=== PATIENT | male | born 1990 | race Hispanic/Latino ===

== ENCOUNTER 2020-07-30 23:49 | Inpatient (IN) | payer BC, OTHER ==
[2020-07-30] MEDS ORDERED: Ketamine 50 MG/ML (10ML VIAL) ONE (23:58)
[2020-07-31] MEDS ORDERED: Boostrix 0.5 ML VIAL ONE (00:08)
[2020-07-31 00:29] LABS: Hemoglobin 15.9 g/dL (14.0-18.0); Mean Corpuscular HGB CONC 34.5 g/dL (32.0-36.0); Mean Corpuscular Hemoglobin 29.5 pg (27.0-31.0); Mean Corpuscular Volume 85.7 fL (78.0-98.0); Mean Platelet Volume 10.2 fL (7.4-10.4); Platelet Count 298 thou/uL (130-400); RBC Distribution Width 12.2 % (11.5-14.5); Red Blood Cell (RBC) Count 5.39 mill/uL (4.70-6.10); White Blood Cell (WBC) Count 24.4 thou/uL (4.8-10.8)
[2020-07-31 00:31] LABS: Band 2 % (5-11); Eosinophils 1 % (0-10); Lymphocytes 31 % (21-51); MDiff Complete? YES; Monocytes 7 % (0-10); Neutrophil 59 % (42-75); Platelet Morphology Comment Appears Adequate
[2020-07-31 00:37] LABS: ALT (SGPT) 49 U/L (8-55); AST (SGOT) 42 U/L (5-34); Albumin 4.4 g/dL (3.5-5.0); Alkaline Phosphatase 119 U/L (40-110); Anion Gap 18 mmol/L (10-20); BUN (Urea Nitrogen) 13 mg/dL (8.9-20.6); Bilirubin, Total 0.3 mg/dL (0.2-1.2); Calc. Creatinine Clearance 0 mL/min (70-130); Calcium 9.4 mg/dL (7.8-10.44); Carbon Dioxide 23 mmol/L (22-29); Chloride 101 mmol/L (98-107); Estimated GFR-MDRD 78; Globulin 3.5 g/dL (2.4-3.5); Glucose 143 mg/dL (70-105); Lipase 16 U/L (8-78); Potassium 3.6 mmol/L (3.5-5.1); Protein, Total 7.9 g/dL (6.0-8.3); Sodium 138 mmol/L (136-145)
[2020-07-31] MEDS ORDERED: Dextrose 50% Abboject 50 ML SYRINGE SLOW IVP PRN (00:58)
[2020-07-31] MEDS ORDERED: Ondansetron ODT 4 MG TAB PO PRN (00:58)
[2020-07-31] MEDS ORDERED: Ondansetron PF 4 MG/2 ML Vial IVP PRN (00:58)
[2020-07-31] MEDS ORDERED: Dextrose 5% in Water 1,000 ML IV PRN (00:58)
[2020-07-31] MEDS ORDERED: Morphine 4 MG/ML VIAL ONE (01:12)
[2020-07-31] MEDS ORDERED: Ondansetron PF 4 MG/2 ML Vial ONE ×2 (01:12→09:55)
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
[2020-07-31] MEDS ORDERED: Fentanyl 100 MCG/2 ML VIAL ONE ×4 (01:41→09:07)
[2020-07-31] MEDS: Acetaminophen 500 MG TAB PO SCH ×4 (03:14→17:18)
[2020-07-31] MEDS: Morphine 2 MG/ML VIAL SLOW IVP PRN ×2 (03:14→05:06)
[2020-07-31] MEDS: Lactated Ringer's 1,000 ML IV SCH ×2 (03:15→15:11)
[2020-07-31] MEDS: traMADol HCl 50 MG TAB PO SCH ×4 (03:15→17:18)
[2020-07-31 03:17] LABS: #Basophils 0.1 thou/uL (0.0-0.2); #Lymphocytes 2.3 thou/uL (1.20-3.40); #Monocytes 1.6 thou/uL (0.11-0.59); #Neutrophils 27.3 thou/uL (1.40-6.50); %Basophils 0.3 % (0.0-1.0); %Eosinophils 0.1 % (0.0-10.0); %Lymphocytes 7.4 % (21.0-51.0); %Neutrophils 87.2 % (42.0-75.0); Hemoglobin 15.6 g/dL (14.0-18.0); Mean Corpuscular HGB CONC 33.9 g/dL (32.0-36.0); Mean Corpuscular Volume 85.7 fL (78.0-98.0); Mean Platelet Volume 10.2 fL (7.4-10.4); Platelet Count 290 thou/uL (130-400); RBC Distribution Width 12.3 % (11.5-14.5); Red Blood Cell (RBC) Count 5.36 mill/uL (4.70-6.10); White Blood Cell (WBC) Count 31.3 thou/uL (4.8-10.8)
[2020-07-31 03:36] LABS: Lactic Acid 2.9 mmol/L (0.5-2.2)
[2020-07-31 03:41] LABS: Anion Gap 17 mmol/L (10-20); BUN (Urea Nitrogen) 11 mg/dL (8.9-20.6); CK (CPK) 1410 U/L (30-200); Calc. Creatinine Clearance 0 mL/min (70-130); Calcium 9.3 mg/dL (7.8-10.44); Carbon Dioxide 22 mmol/L (22-29); Chloride 101 mmol/L (98-107); Estimated GFR-MDRD Greater than 90; Glucose 135 mg/dL (70-105); Potassium 3.9 mmol/L (3.5-5.1); Sodium 136 mmol/L (136-145)
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
[2020-07-31] MEDS: Ketorolac Tromethamine 30 MG/ML VIAL IVP SCH ×3 (04:30→17:19)
[2020-07-31 04:47] VITALS: BMI 40.3
[2020-07-31] MEDS ORDERED: CEFAZOLIN 2 GM in Premix Bag 1 BAG IVPB SCH (07:45)
[2020-07-31] MEDS ORDERED: Promethazine HCl 25 MG/ML VIAL IM PRN (08:11)
[2020-07-31] MEDS ORDERED: Promethazine HCl 25 MG/ML VIAL SLOW IVP PRN ×2 (08:11→09:46)
[2020-07-31] MEDS ORDERED: Ondansetron HCl/PF 4 MG/2 ML Vial IVP PRN ×2 (08:11→09:46)
[2020-07-31] MEDS ORDERED: Meperidine HCl/PF 25 MG/ML VIAL SLOW IVP PRN ×2 (08:11→09:46)
[2020-07-31] MEDS: Senokot S 8.6-50 MG TAB PO SCH ×2 (08:30→21:32)
[2020-07-31] MEDS: Famotidine 20 MG TAB PO SCH ×2 (08:30→21:32)
[2020-07-31] MEDS: Polyethylene Glycol 3350 17 GM Packet PO SCH (08:30)
[2020-07-31] MEDS: Gabapentin 100 MG CAP PO SCH ×3 (08:30→21:32)
[2020-07-31] MEDS ORDERED: Neomycin-Polymyxin 1 ML AMP ONE (09:17)
[2020-07-31] MEDS ORDERED: HYDROmorphone 2 MG/ML VIAL SLOW IVP PRN (09:46)
[2020-07-31] MEDS ORDERED: HYDROmorphone 2 MG/ML VIAL ONE (09:47)
[2020-07-31] MEDS ORDERED: Lidocaine 1% PF 5 ML VIAL ONE (09:55)
[2020-07-31] MEDS ORDERED: PHENYLEPHRINE-NS 100 MCG/ML 10 ML SYRINGE ONE (09:55)
[2020-07-31] MEDS ORDERED: Dexamethasone 20 MG/5 ML VIAL ONE (09:55)
[2020-07-31] MEDS ORDERED: PROPOFOL 200 MG/20 ML VIAL ONE (09:55)
[2020-07-31] MEDS ORDERED: HYDROcodone/Acetaminophen 10/325 mg Tablet PO PRN (11:14)
[2020-07-31] MEDS: tiZANidine HCl 4 MG TAB PO SCH ×2 (11:31→17:17)
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
[2020-07-31] MEDS: cefTRIAXone\\ROCEPHIN 1 GM in Sodium Chloride 0.9% 100 ML IVPB SCH (12:02)
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
[2020-07-31 12:12] LABS: SARS-CoV-2 MS2 Positive; SARS-CoV-2 N Gene Negative; SARS-CoV-2 S Gene Negative; SARS-CoV-2 by NAA Not Detected (NotDetected); SARS-CoV-2 orf1ab Negative
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
--- NOTE | 2020-07-31 12:44 | RAD ---
RIGHT KNEE 2 VIEWS: HISTORY: Knee injury post reduction. FINDINGS: The knee dislocation has been partially reduced. Tibia is still anteriorly displaced in relation to the femur. There is a comminuted fibular head and neck fracture present and there appears to be a sm all bony fragment seen along the posterior aspect of the tibial plateau suggesting some tibial platea u injury. IMPRESSION: Findings suggestive of a posterior tibial plateau injury with associated comminuted fibular head and neck fracture. The dislocation is partially reduced on this exam. POS: OFF
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
[2020-07-31] MEDS ORDERED: Iopamidol 370 76% 100 ML VIAL ONE (13:38)
[2020-07-31] MEDS: CEFAZOLIN 2 GM in Premix Bag 1 BAG IVPB SCH ×2 (15:09→21:33)
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
--- NOTE | 2020-07-31 20:18 | RAD ---
RIGHT TIBIA AND FIBULA: 07/31/20 HISTORY: Intraoperative films. This is a series of six C-arm images showing placement of an external fixation device in the tibia an d distal femur. IMPRESSION: Screw placement related to external fixation device. POS: RICH
[2020-07-31] MEDS ORDERED: FLU VACC QS2020-21(6MOS UP)/PF 60 MCG/0.5 ML SYRINGE IM ONE (21:00)
[2020-08-01] MEDS: tiZANidine HCl 4 MG TAB PO SCH ×5 (00:04→23:55)
[2020-08-01] MEDS: Ketorolac Tromethamine 30 MG/ML VIAL IVP SCH ×5 (00:04→23:55)
[2020-08-01] MEDS: traMADol HCl 50 MG TAB PO SCH (02:17)
[2020-08-01] MEDS: Acetaminophen 500 MG TAB PO SCH ×4 (02:18→17:20)
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
[2020-08-01] MEDS: CEFAZOLIN 2 GM in Premix Bag 1 BAG IVPB SCH ×3 (04:57→21:05)
[2020-08-01] MEDS: Lactated Ringer's 1,000 ML IV SCH ×3 (05:25→13:53)
[2020-08-01 06:15] LABS: #Lymphocytes 2.9 thou/uL (1.20-3.40); #Monocytes 1.4 thou/uL (0.11-0.59); #Neutrophils 9.5 thou/uL (1.40-6.50); %Basophils 0.3 % (0.0-1.0); %Eosinophils 0.3 % (0.0-10.0); %Monocytes 9.9 % (0.0-10.0); %Neutrophils 68.6 % (42.0-75.0); Hemoglobin 11.8 g/dL (14.0-18.0); Mean Corpuscular HGB CONC 33.5 g/dL (32.0-36.0); Mean Corpuscular Hemoglobin 29.6 pg (27.0-31.0); Mean Corpuscular Volume 88.4 fL (78.0-98.0); Mean Platelet Volume 10.2 fL (7.4-10.4); Platelet Count 207 thou/uL (130-400); RBC Distribution Width 12.2 % (11.5-14.5); Red Blood Cell (RBC) Count 3.99 mill/uL (4.70-6.10); White Blood Cell (WBC) Count 13.8 thou/uL (4.8-10.8)
[2020-08-01 06:33] LABS: Anion Gap 12 mmol/L (10-20); BUN (Urea Nitrogen) 18 mg/dL (8.9-20.6); CK (CPK) 2097 U/L (30-200); Calc. Creatinine Clearance 160 mL/min (70-130); Carbon Dioxide 23 mmol/L (22-29); Chloride 105 mmol/L (98-107); Estimated GFR-MDRD 79; Glucose 100 mg/dL (70-105); Magnesium 1.9 mg/dL (1.6-2.6); Phosphorus 3.4 mg/dL (2.3-4.7); Sodium 136 mmol/L (136-145)
[2020-08-01] MEDS ORDERED: Ibuprofen 600 MG TAB PO PRN (08:22)
[2020-08-01] MEDS: Senokot S 8.6-50 MG TAB PO SCH ×2 (09:40→21:05)
[2020-08-01] MEDS: Polyethylene Glycol 3350 17 GM Packet PO SCH (09:40)
[2020-08-01] MEDS: Famotidine 20 MG TAB PO SCH ×2 (09:41→21:04)
[2020-08-01] MEDS: Gabapentin 100 MG CAP PO SCH ×3 (09:41→21:05)
[2020-08-01] MEDS: HYDROcodone/Acetaminophen 10/325 mg Tablet PO PRN ×2 (09:42→17:09)
[2020-08-01] MEDS: cefTRIAXone\\ROCEPHIN 1 GM in Sodium Chloride 0.9% 100 ML IVPB SCH (12:55)
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
--- NOTE | 2020-08-01 18:32 | MRI ---
MRI OF RIGHT KNEE PERFORMED WITHOUT CONTRAST ENHANCEMENT: History: Right knee dislocation. FINDINGS: External fixation device causes degradation of signal. There is a proximal ACL tear. The posterior cruciate ligament shows some increased signal change but appears to be intact. There could be some interstitial tearing present in the mid substance. There is a fracture involving the posterior aspect of the medial tibial plateau as a minimally depres sed fracture line mainly parallels the subchondral bony plate. There is root tear of the posterior ho rn of the medial meniscus. Increased intrameniscal signal change would suggest some intrameniscal con tusion. Lateral side shows a complex tear of the posterior horn with meniscal subluxation. The medial collateral ligament is intact. Signal detail for evaluation of the lateral collateral liga ment is limited. There is at least strain present. The iliotibial band region appears unremarkable. C omminuted fibular head and neck fracture is present. The biceps femoris tendon attaches to the a more posterior component of this fracture. There is limited evaluation, but unremarkable appearance to the patellar articular cartilage. There i s edema change around the MPSL and medial patellar retinaculum. The lateral patellar retinaculum appe ars intact. Quadriceps and patellar tendons are intact. Extensive edema changes are seen in the soft tissues. There is an impaction type fracture involving the anterior aspect of the medial femoral cond yle in the lower portion of the trochlear groove and also more medial in position. IMPRESSION: 1. Complete ACL tear with evidence of a PCL strain. 2. Subchondral bony fracture with minimal depression of the posterior aspect of the medial tibia l plateau. 3. Root tear of the posterior horn of the medial meniscus and a complex tear of the posterior ho rn of the lateral meniscus. 4. Intact medial collateral ligament. There is at least lateral collateral ligament strain, prob ably still intact. There is a comminuted fibular head and neck fracture present. 5. Impaction fracture involving the anterior aspect of the medial femoral condyle in the region of the lower trochlear groove. 6. Extensive soft tissue edema. POS: RICH
[2020-08-01] MEDS: Enoxaparin Sodium 30 MG/0.3 ML SYRINGE SC SCH (21:05)
[2020-08-02] MEDS: Lactated Ringer's 1,000 ML IV SCH ×2 (02:28→04:31)
[2020-08-02 04:19] LABS: #Basophils 0.1 thou/uL (0.0-0.2); #Eosinphils 0.2 thou/uL (0.0-0.7); #Lymphocytes 3.2 thou/uL (1.20-3.40); #Monocytes 0.8 thou/uL (0.11-0.59); #Neutrophils 9.2 thou/uL (1.40-6.50); %Basophils 0.6 % (0.0-1.0); %Eosinophils 1.8 % (0.0-10.0); %Lymphocytes 23.3 % (21.0-51.0); %Monocytes 5.9 % (0.0-10.0); %Neutrophils 68.4 % (42.0-75.0); Hemoglobin 11.3 g/dL (14.0-18.0); Mean Corpuscular HGB CONC 34.2 g/dL (32.0-36.0); Mean Corpuscular Hemoglobin 30.1 pg (27.0-31.0); Mean Corpuscular Volume 88.2 fL (78.0-98.0); Mean Platelet Volume 10.1 fL (7.4-10.4); Platelet Count 200 thou/uL (130-400); Red Blood Cell (RBC) Count 3.75 mill/uL (4.70-6.10); White Blood Cell (WBC) Count 13.5 thou/uL (4.8-10.8)
[2020-08-02 04:38] LABS: Lactic Acid 0.8 mmol/L (0.5-2.2)
[2020-08-02 04:45] LABS: Anion Gap 10 mmol/L (10-20); BUN (Urea Nitrogen) 16 mg/dL (8.9-20.6); CK (CPK) 3373 U/L (30-200); Calc. Creatinine Clearance 171 mL/min (70-130); Calcium 8.2 mg/dL (7.8-10.44); Carbon Dioxide 28 mmol/L (22-29); Chloride 101 mmol/L (98-107); Estimated GFR-MDRD 86; Glucose 90 mg/dL (70-105); Magnesium 1.9 mg/dL (1.6-2.6); Sodium 135 mmol/L (136-145)
[2020-08-02] MEDS: Ketorolac Tromethamine 30 MG/ML VIAL IVP SCH (04:59)
[2020-08-02] MEDS: tiZANidine HCl 4 MG TAB PO SCH (05:00)
[2020-08-02] MEDS: CEFAZOLIN 2 GM in Premix Bag 1 BAG IVPB SCH (05:00)
[2020-08-02] MEDS: Acetaminophen 500 MG TAB PO SCH ×2 (07:17)
[2020-08-02] MEDS ORDERED: Acetaminophen 500 MG TAB PO SCH (07:49)
[2020-08-02] MEDS ORDERED: PHOS-NAK 1 PKT PACK PO SCH (08:00)
[2020-08-02] MEDS ORDERED: Magnesium 2 GM/50 ML 2 GM in Premix Bag 1 BAG IVPB SCH (08:00)
[2020-08-02] MEDS ORDERED: traMADol HCl 50 MG TAB PO PRN ×2 (08:39)
[2020-08-02] MEDS: Polyethylene Glycol 3350 17 GM Packet PO SCH (09:09)
[2020-08-02] MEDS: Gabapentin 100 MG CAP PO SCH ×3 (09:09→20:12)
[2020-08-02] MEDS: Famotidine 20 MG TAB PO SCH ×2 (09:14→20:12)
[2020-08-02] MEDS: Sodium Chloride 0.9% 1,000 ML IV SCH ×3 (09:14→21:58)
[2020-08-02] MEDS: Senokot S 8.6-50 MG TAB PO SCH ×2 (09:14→20:12)
[2020-08-02] MEDS: Enoxaparin Sodium 30 MG/0.3 ML SYRINGE SC SCH ×2 (09:14→20:12)
[2020-08-02] MEDS: Acetaminophen 325 MG TAB PO SCH ×3 (11:56→23:57)
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
[2020-08-02] MEDS: Cyclobenzaprine 10 MG TAB PO PRN (16:01)
[2020-08-02] MEDS: traMADol HCl 50 MG TAB PO SCH ×2 (18:38→23:58)
--- NOTE | 2020-08-02 23:14 | RAD ---
Exam: Chest one view HISTORY:Fever. Comparison: None FINDINGS: Cardiac silhouette: Normal Aorta: Unremarkable Pulmonary vessels: Normal Costophrenic angles: Clear LUNGS: Possible right lower lobe infiltrate. Pneumothorax: None Osseous abnormalities: None IMPRESSION: Right lower lobe infiltrate.
[2020-08-03 00:29] LABS: Bacteria/HPF None Seen HPF (None Seen); Bilirubin Negative (Negative); Blood, Urine Negative (Negative); Clarity Clear (Clear); Glucose, Urine (Dipstick) Normal (Negative); Ketone, Urine Negative (Negative); Leukocyte Negative Leu/uL (Negative); Nitrite Negative (Negative); Protein, Urine (Dipstick) Negative (Neg-Trace); RBC/HPF 0-3 HPF (0-3); Specific Gravity, Urine 1.012 (1.002-1.036); Squamous Epithelial 0-3 HPF (0-3); WBC/HPF 0-3 HPF (0-3)
[2020-08-03] MEDS: Sodium Chloride 0.9% 1,000 ML IV SCH ×2 (01:49→03:50)
[2020-08-03] MEDS: Ibuprofen 200 MG TAB PO SCH ×3 (05:15→20:47)
[2020-08-03] MEDS: Acetaminophen 500 MG TAB PO SCH ×3 (05:15→17:12)
[2020-08-03] MEDS: traMADol HCl 50 MG TAB PO SCH ×3 (05:16→17:11)
[2020-08-03 05:59] LABS: Band 1 % (5-11); Eosinophils 1 % (0-10); Hemoglobin 11.8 g/dL (14.0-18.0); Hypochromia SLIGHT = 6-15 cells (100X) (0-5/hpf); Lymphocytes 21 % (21-51); MDiff Complete? YES; Mean Corpuscular HGB CONC 33.3 g/dL (32.0-36.0); Mean Corpuscular Volume 87.3 fL (78.0-98.0); Mean Platelet Volume 9.9 fL (7.4-10.4); Monocytes 1 % (0-10); Neutrophil 76 % (42-75); Platelet Count 262 thou/uL (130-400); Platelet Morphology Comment Appears Adequate; RBC Distribution Width 11.8 % (11.5-14.5); Red Blood Cell (RBC) Count 4.05 mill/uL (4.70-6.10); White Blood Cell (WBC) Count 13.8 thou/uL (4.8-10.8)
[2020-08-03 06:00] LABS: Anion Gap 13 mmol/L (10-20); BUN (Urea Nitrogen) 8 mg/dL (8.9-20.6); CK (CPK) 2840 U/L (30-200); Calc. Creatinine Clearance 202 mL/min (70-130); Carbon Dioxide 23 mmol/L (22-29); Chloride 104 mmol/L (98-107); Estimated GFR-MDRD Greater than 90; Glucose 89 mg/dL (70-105); Phosphorus 2.4 mg/dL (2.3-4.7); Potassium 3.8 mmol/L (3.5-5.1); Sodium 136 mmol/L (136-145)
[2020-08-03] MEDS ORDERED: CEFAZOLIN 2 GM in Premix Bag 1 BAG IVPB SCH (07:15)
[2020-08-03] MEDS: Enoxaparin Sodium 30 MG/0.3 ML SYRINGE SC SCH (08:24)
[2020-08-03] MEDS: Gabapentin 100 MG CAP PO SCH ×3 (08:24→20:47)
[2020-08-03] MEDS: Senokot S 8.6-50 MG TAB PO SCH ×2 (08:25→20:44)
[2020-08-03] MEDS: Famotidine 20 MG TAB PO SCH ×2 (08:25→20:44)
[2020-08-03] MEDS: Polyethylene Glycol 3350 17 GM Packet PO SCH (08:25)
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
[2020-08-03] MEDS ORDERED: Enoxaparin Sodium 40 MG/0.4 ML SYRINGE SC SCH (21:00)
[2020-08-04] MEDS: Acetaminophen 500 MG TAB PO SCH ×4 (00:05→17:48)
[2020-08-04] MEDS: traMADol HCl 50 MG TAB PO SCH ×4 (00:05→17:47)
[2020-08-04] MEDS ORDERED: Sodium Chloride 0.9% 1,000 ML IV SCH (01:15)
--- NOTE | 2020-08-04 01:53 | PRG ---
DATE OF SERVICE: 08/03/2020 SUBJECTIVE: The patient was seen during evening rounds, resting comfortably in no acute distress. Orthopedic Surgery plans to take the patient to the OR in the morning for internalization of his right leg. PLAN: Continue pain control and supportive care. N.p.o. after midnight with maintenance IV fluids, normal saline at 150 an hour. Job ID: [id number]
[2020-08-04 05:06] LABS: #Eosinphils 0.5 thou/uL (0.0-0.7); #Lymphocytes 2.7 thou/uL (1.20-3.40); #Monocytes 0.9 thou/uL (0.11-0.59); #Neutrophils 11.1 thou/uL (1.40-6.50); %Basophils 0.1 % (0.0-1.0); %Eosinophils 3.2 % (0.0-10.0); %Lymphocytes 17.6 % (21.0-51.0); %Monocytes 6.2 % (0.0-10.0); %Neutrophils 72.8 % (42.0-75.0); Hemoglobin 11.1 g/dL (14.0-18.0); Mean Corpuscular HGB CONC 33.3 g/dL (32.0-36.0); Mean Corpuscular Hemoglobin 29.1 pg (27.0-31.0); Mean Corpuscular Volume 87.1 fL (78.0-98.0); Mean Platelet Volume 9.1 fL (7.4-10.4); Platelet Count 284 thou/uL (130-400); RBC Distribution Width 11.9 % (11.5-14.5); Red Blood Cell (RBC) Count 3.83 mill/uL (4.70-6.10); White Blood Cell (WBC) Count 15.2 thou/uL (4.8-10.8)
[2020-08-04] MEDS: Ibuprofen 200 MG TAB PO SCH ×3 (05:20→20:56)
[2020-08-04 05:40] LABS: Anion Gap 11 mmol/L (10-20); BUN (Urea Nitrogen) 8 mg/dL (8.9-20.6); Calc. Creatinine Clearance 217 mL/min (70-130); Calcium 8.5 mg/dL (7.8-10.44); Carbon Dioxide 25 mmol/L (22-29); Chloride 104 mmol/L (98-107); Estimated GFR-MDRD Greater than 90; Glucose 93 mg/dL (70-105); Magnesium 1.9 mg/dL (1.6-2.6); Phosphorus 3.6 mg/dL (2.3-4.7); Potassium 3.9 mmol/L (3.5-5.1); Sodium 136 mmol/L (136-145)
[2020-08-04] MEDS ORDERED: Potassium Phosphate 15 MMOL, Magnesium Sulfate 2 GM in Sodium Chloride 0.9% 250 ML 250 ML IVPB SCH (07:45)
[2020-08-04] MEDS ORDERED: Magnesium 2 GM/50 ML 2 GM in Premix Bag 1 BAG IVPB SCH (07:45)
[2020-08-04] MEDS ORDERED: Ondansetron HCl/PF 4 MG/2 ML Vial IVP PRN ×2 (09:28→13:09)
[2020-08-04] MEDS ORDERED: Promethazine HCl 25 MG/ML VIAL IM PRN ×2 (09:28→13:09)
[2020-08-04] MEDS ORDERED: Promethazine HCl 25 MG/ML VIAL SLOW IVP PRN ×2 (09:28→13:09)
[2020-08-04] MEDS ORDERED: PROPOFOL 200 MG/20 ML VIAL ONE (09:36)
[2020-08-04] MEDS ORDERED: Rocuronium Bromide 10 MG/ML (10ML VIAL) ONE (09:36)
[2020-08-04] MEDS ORDERED: Ketorolac Tromethamine 30 MG/ML VIAL ONE (09:36)
[2020-08-04] MEDS ORDERED: PHENYLEPHRINE-NS 100 MCG/ML 10 ML SYRINGE ONE (09:36)
[2020-08-04] MEDS ORDERED: Esmolol 100 MG/10 ML VIAL ONE (09:36)
[2020-08-04] MEDS ORDERED: Dexamethasone 20 MG/5 ML VIAL ONE (09:36)
[2020-08-04] MEDS ORDERED: Vecuronium 10 MG VIAL ONE (09:36)
[2020-08-04] MEDS ORDERED: Glycopyrrolate 0.2 MG/ML 5 ML SYRINGE ONE (09:36)
[2020-08-04] MEDS ORDERED: Ondansetron PF 4 MG/2 ML Vial ONE (09:36)
[2020-08-04] MEDS ORDERED: Fentanyl 100 MCG/2 ML VIAL ONE ×5 (09:48→13:53)
[2020-08-04] MEDS ORDERED: Midazolam HCl 2 mg/2 ml Vial ONE (09:48)
[2020-08-04] MEDS ORDERED: PACU-Morphine 4MG/ML VIAL SLOW IVP PRN (13:09)
[2020-08-04] MEDS ORDERED: Morphine Sulfate 2 MG/ML SYRINGE SLOW IVP PRN (13:09)
[2020-08-04] MEDS ORDERED: Meperidine HCl/PF 25 MG/ML VIAL SLOW IVP PRN (13:09)
[2020-08-04] MEDS ORDERED: HYDROmorphone 2 MG/ML VIAL SLOW IVP PRN (13:09)
[2020-08-04] MEDS ORDERED: Morphine 4 MG/ML VIAL SLOW IVP SCH (15:30)
[2020-08-04] MEDS ORDERED: traMADol HCl 50 MG TAB PO SCH (15:30)
[2020-08-04] MEDS: Gabapentin 100 MG CAP PO SCH ×3 (15:40→20:55)
[2020-08-04] MEDS: Polyethylene Glycol 3350 17 GM Packet PO SCH (15:40)
[2020-08-04] MEDS: Senokot S 8.6-50 MG TAB PO SCH ×2 (15:40→20:55)
[2020-08-04] MEDS: Famotidine 20 MG TAB PO SCH ×2 (15:40→20:55)
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
[2020-08-04] MEDS ORDERED: Enoxaparin Sodium 40 MG/0.4 ML SYRINGE SC SCH (21:00)
--- NOTE | 2020-08-04 22:00 | RAD ---
EXAM: INTRAOPERATIVE FLUOROSCOPY 08/04/20 EXPOSURE: 21 seconds. 1.71 mGy. Four intraoperative fluoroscopic images are submitted for interpretation. There appear to be surgical intervention at the level of the left knee. IMPRESSION: Fluoroscopy as above. POS: OFF
[2020-08-05] MEDS: traMADol HCl 50 MG TAB PO SCH ×3 (00:01→11:43)
[2020-08-05] MEDS: Acetaminophen 500 MG TAB PO SCH ×3 (00:01→11:43)
[2020-08-05] MEDS: Cyclobenzaprine 10 MG TAB PO PRN (01:30)
[2020-08-05] MEDS: Ibuprofen 200 MG TAB PO SCH ×2 (05:18→14:46)
[2020-08-05 06:44] LABS: #Eosinphils 0.2 thou/uL (0.0-0.7); #Lymphocytes 2.2 thou/uL (1.20-3.40); #Monocytes 1.2 thou/uL (0.11-0.59); #Neutrophils 12.1 thou/uL (1.40-6.50); %Basophils 0.2 % (0.0-1.0); %Eosinophils 1.3 % (0.0-10.0); %Lymphocytes 14.1 % (21.0-51.0); %Monocytes 7.4 % (0.0-10.0); Hemoglobin 10.3 g/dL (14.0-18.0); Mean Corpuscular HGB CONC 32.1 g/dL (32.0-36.0); Mean Corpuscular Hemoglobin 28.6 pg (27.0-31.0); Mean Corpuscular Volume 89.2 fL (78.0-98.0); Mean Platelet Volume 9.2 fL (7.4-10.4); Platelet Count 338 thou/uL (130-400); RBC Distribution Width 12.1 % (11.5-14.5); Red Blood Cell (RBC) Count 3.59 mill/uL (4.70-6.10); White Blood Cell (WBC) Count 15.7 thou/uL (4.8-10.8)
[2020-08-05 08:02] LABS: Anion Gap 14 mmol/L (10-20); BUN (Urea Nitrogen) 12 mg/dL (8.9-20.6); Calc. Creatinine Clearance 200 mL/min (70-130); Calcium 8.5 mg/dL (7.8-10.44); Carbon Dioxide 24 mmol/L (22-29); Chloride 103 mmol/L (98-107); Estimated GFR-MDRD Greater than 90; Glucose 93 mg/dL (70-105); Magnesium 2.3 mg/dL (1.6-2.6); Phosphorus 3.3 mg/dL (2.3-4.7); Potassium 4.3 mmol/L (3.5-5.1); Sodium 137 mmol/L (136-145)
[2020-08-05] MEDS: Polyethylene Glycol 3350 17 GM Packet PO SCH (08:18)
[2020-08-05] MEDS: Gabapentin 100 MG CAP PO SCH ×2 (08:18→14:47)
[2020-08-05] MEDS: Senokot S 8.6-50 MG TAB PO SCH (08:19)
[2020-08-05] MEDS: Famotidine 20 MG TAB PO SCH (08:58)
[2020-08-05] MEDS ORDERED: Enoxaparin Sodium 40 MG/0.4 ML SYRINGE SC SCH (09:00)
[2020-08-05 16:19] VITALS: BP 138/78; TEMP 98.3
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
== END 2020-08-05 17:47 | DRG 488 ==
LOC: ERS 23:49 → SURG A 07-31 01:04
PROVIDERS: ADMIT Orthopaedic Surgery; ATTEND Orthopaedic Surgery
PROC: 0QSG35Z Reposition Right Tibia with External Fixation Device, Percutaneous Approach (ICD-10-PCS; principal; 2020-07-31)
PROC: 0QBL0ZZ Excision of Right Tarsal, Open Approach (ICD-10-PCS; 2020-07-31)
PROC: 0SQC0ZZ Repair Right Knee Joint, Open Approach (ICD-10-PCS; 2020-08-04)
PROC: 0JQN0ZZ Repair Right Lower Leg Subcutaneous Tissue and Fascia, Open Approach (ICD-10-PCS; 2020-08-04)
PROC: 01NH0ZZ Release Peroneal Nerve, Open Approach (ICD-10-PCS; 2020-08-04)
PROC: 0QBG4ZZ Excision of Right Tibia, Percutaneous Endoscopic Approach (ICD-10-PCS; 2020-08-04)
PROC: 2W3CX1Z Immobilization of Right Lower Arm using Splint (ICD-10-PCS; 2020-08-04)
PROC: 2W3QX1Z Immobilization of Right Lower Leg using Splint (ICD-10-PCS; 2020-08-04)
PROC: 2W3CX2Z Immobilization of Right Lower Arm using Cast (ICD-10-PCS; 2020-08-04)
DX: S82.891B Other fracture of right lower leg, initial encounter for open fracture type I or II (principal); S82.101A Unspecified fracture of upper end of right tibia, initial encounter for closed fracture; S52.601A Unspecified fracture of lower end of right ulna, initial encounter for closed fracture; M62.82 Rhabdomyolysis; J98.11 Atelectasis; S83.104A Unspecified dislocation of right knee, initial encounter; Z20.828 Contact with and (suspected) exposure to other viral communicable diseases; S82.451A Displaced comminuted fracture of shaft of right fibula, initial encounter for closed fracture; S93.04XA Dislocation of right ankle joint, initial encounter; S82.831A Other fracture of upper and lower end of right fibula, initial encounter for closed fracture; V60.5XXA Driver of heavy transport vehicle injured in collision with pedestrian or animal in traffic accident, initial encounter
CPT/HCPCS: 27550; 27830; 27840; 36415; 70450; 71045; 71260; 72125; 74177; 76000; 80048; 80053; 81001; 82550; 83605; 83690; 83735; 84100; 85007; 85025; 85027; 87040; 87070; 87086; 87205; 87635; 90471; 90715; 96365; 96375; 99152; 99153; 99292; C1713; G0390; J0690; J0696; J1100; J1170; J1650; J1885; J2250; J2270; J2405; J2704; J3010; J3370; J3475; J3490; J7050; J7620; Q9967; U0003

== ENCOUNTER 2020-09-03 06:47 | Outpatient (CLI) | payer BC ==
[2020-09-04 13:41] LABS: SARS-CoV-2 MS2 Positive; SARS-CoV-2 N Gene Negative; SARS-CoV-2 S Gene Negative; SARS-CoV-2 by NAA Not Detected (NotDetected); SARS-CoV-2 orf1ab Negative
== END 2020-09-03 06:48 | disposition home or self-care (01) ==
LOC: LABBT 06:47
PROVIDERS: ATTEND Orthopaedic Surgery
DX: T85.848A Pain due to other internal prosthetic devices, implants and grafts, initial encounter (principal); Z20.828 Contact with and (suspected) exposure to other viral communicable diseases
CPT/HCPCS: 87635; U0003

== ENCOUNTER 2020-09-08 10:01 | Day surgery (SDC) | payer BC ==
[2020-09-07 09:32] VITALS: BMI 38.2
[~2020-09-08 10:01] MED LIST: Ketorolac Tromethamine 30 MG/ML VIAL ONE; Lidocaine 1% PF 5 ML VIAL ONE; Ondansetron PF 4 MG/2 ML Vial ONE; PROPOFOL 200 MG/20 ML VIAL ONE
[2020-09-08] MEDS ORDERED: Fentanyl 100 MCG/2 ML VIAL ONE ×4 (12:16→14:35)
[2020-09-08] MEDS ORDERED: Lidocaine 1% (PF) 30 ML VIAL ONE (12:18)
[2020-09-08] MEDS ORDERED: HYDROmorphone 2 MG/ML VIAL SLOW IVP PRN (13:54)
[2020-09-08] MEDS ORDERED: Promethazine HCl 25 MG/ML VIAL SLOW IVP PRN (13:54)
[2020-09-08] MEDS ORDERED: Morphine Sulfate 2 MG/ML SYRINGE SLOW IVP PRN (13:54)
[2020-09-08] MEDS ORDERED: Promethazine HCl 25 MG/ML VIAL IM PRN (13:54)
[2020-09-08] MEDS ORDERED: Meperidine HCl/PF 25 MG/ML VIAL SLOW IVP PRN (13:54)
[2020-09-08] MEDS ORDERED: PACU-Morphine 4MG/ML VIAL SLOW IVP PRN (13:54)
[2020-09-08] MEDS ORDERED: Ondansetron HCl/PF 4 MG/2 ML Vial IVP PRN (13:54)
--- NOTE | 2020-09-08 16:26 | OP ---
DATE OF PROCEDURE: 09/08/2020 PREOPERATIVE DIAGNOSIS: Status post right knee dislocation with treatment and application of spanning knee external fixator. POSTOPERATIVE DIAGNOSIS: Status post right knee dislocation with treatment and application of spanning knee external fixator. PROCEDURES PERFORMED: Removal of external fixator of right knee and manipulation under anesthesia of right knee. ANESTHESIA: General. PAPER LATCHER: Gavin Franco PA-C TOURNIQUET TIME: Zero. COMPLICATIONS: None. DRAINS: None. IMPLANTS: None. SPECIMENS: External fixator removed. INDICATION FOR PROCEDURE: The patient is a 30-year-old gentleman, status post severe right knee injury with multiple ligament injuries and gross instability. The patient did have other orthopedic injuries at the initial time of presentation. Due to the instability of the right knee, a spanning external fixator was applied. The patient has had a subsequent surgical procedure trying to stabilize the fibular head and neck fracture. The patient also has a partial peroneal nerve palsy. At this time, it was felt that it was time for the external fixator to be removed, to begin working on gentle range of motion of the knee, and as such, the patient was taken to the operating room today for removal of external fixator. DESCRIPTION OF PROCEDURE: The patient was brought to the operating room and a time-out performed followed by induction of general anesthesia. Next, a prep of the anterior thigh and anterior lower leg was performed with Betadine. Next, while I held the leg in place, my practice assistant removed the external fixator frame and then removed each of the 4 pins without difficulty. The 4 pin sites were then scrubbed with Betadine and then dressed with a dry gauze dressing. At this time, my practice assistant brought the knee through a range of motion. He was only found to have approximately 15 to 45 degrees of motion. We really did not pursue an aggressive manipulation due to the acute nature of his other injuries. As such, at this point, the knee was placed in a hinged knee brace and then the patient was transferred to recovery room in stable condition. There were no complications. The patient tolerated the procedure well. Job ID: [id number]
== END 2020-09-08 16:44 | disposition home or self-care (01) ==
LOC: SDC 10:01
PROVIDERS: ATTEND Orthopaedic Surgery
PROC: 0YP9XYZ Removal of Other Device from Right Lower Extremity, External Approach (ICD-10-PCS; principal; 2020-09-08)
DX: T84.84XA Pain due to internal orthopedic prosthetic devices, implants and grafts, initial encounter (principal)
CPT/HCPCS: J0690; J1885; J2001; J2405; J2704; J3010

== ENCOUNTER 2021-05-04 14:00 | Outpatient (CLI) | payer BC ==
[2021-05-04 15:29] LABS: Bilirubin Neg (Negative); Blood, Urine Negative (Negative); Clarity Clear (Clear); Glucose, Urine (Dipstick) Normal (Negative); Ketone, Urine Negative (Negative); Leukocyte Negative (Negative); Nitrite Negative (Negative); Protein, Urine (Dipstick) 30 mg/dl (Neg-Trace); Urobilinogen Normal mg/dL (Less than 2)
[2021-05-04 15:37] LABS: Hemoglobin 16.2 g/dL (13.5-17.5); Mean Corpuscular HGB CONC 32.9 g/dL (32.0-36.0); Mean Corpuscular Hemoglobin 27.8 pg (27.0-33.0); Mean Corpuscular Volume 84.6 fl (81.2-95.1); Mean Platelet Volume 11.9 fl (7.4-10.4); Platelet Count 280 10x3/uL (150-450); RBC Distribution Width 13.5 % (11.5-14.5); Red Blood Cell (RBC) Count 5.83 10x6/uL (4.32-5.72); White Blood Cell (WBC) Count 12.7 10x3/uL (3.5-10.5)
[2021-05-04 15:44] LABS: Bacteria/HPF None Seen HPF (None Seen); Prothrombin Time 11.1 sec (9.5-12.1); RBC/HPF 0-3 HPF (0-3); Squamous Epithelial None Seen HPF (0-3); WBC/HPF None Seen HPF (0-3)
[2021-05-04 16:00] LABS: Anion Gap 14 mmol/L (10-20); BUN (Urea Nitrogen) 10 mg/dL (8.9-20.6); Calc. Creatinine Clearance 0 mL/min (70-130); Calcium 10.4 mg/dL (7.8-10.44); Carbon Dioxide 28 mmol/L (22-29); Chloride 102 mmol/L (98-107); Glucose 81 mg/dL (70-105); Potassium 4.6 mmol/L (3.5-5.1); Sodium 139 mmol/L (136-145)
[2021-05-05 15:51] LABS: SARS-CoV-2 PCR by NAA Not Detected (NotDetected)
== END 2021-05-04 14:01 | disposition home or self-care (01) ==
LOC: LABBT 14:00
PROVIDERS: ATTEND Orthopaedic Surgery
DX: Z01.818 Encounter for other preprocedural examination (principal); M17.31 Unilateral post-traumatic osteoarthritis, right knee; Z20.822 Contact with and (suspected) exposure to COVID-19
CPT/HCPCS: 80048; 81001; 85027; 85610; 86850; 86900; 86901; 87081; 93005; 93010; U0003; U0005

== ENCOUNTER 2021-05-09 05:30 | Day surgery (SDC) | payer BC ==
[2021-05-04 15:29] LABS: Bilirubin Neg (Negative); Blood, Urine Negative (Negative); Clarity Clear (Clear); Glucose, Urine (Dipstick) Normal (Negative); Ketone, Urine Negative (Negative); Leukocyte Negative (Negative); Nitrite Negative (Negative); Protein, Urine (Dipstick) 30 mg/dl (Neg-Trace); Urobilinogen Normal mg/dL (Less than 2)
[2021-05-04 15:37] LABS: Hemoglobin 16.2 g/dL (13.5-17.5); Mean Corpuscular HGB CONC 32.9 g/dL (32.0-36.0); Mean Corpuscular Hemoglobin 27.8 pg (27.0-33.0); Mean Corpuscular Volume 84.6 fl (81.2-95.1); Mean Platelet Volume 11.9 fl (7.4-10.4); Platelet Count 280 10x3/uL (150-450); RBC Distribution Width 13.5 % (11.5-14.5); Red Blood Cell (RBC) Count 5.83 10x6/uL (4.32-5.72); White Blood Cell (WBC) Count 12.7 10x3/uL (3.5-10.5)
[2021-05-04 15:44] LABS: Bacteria/HPF None Seen HPF (None Seen); Prothrombin Time 11.1 sec (9.5-12.1); RBC/HPF 0-3 HPF (0-3); Squamous Epithelial None Seen HPF (0-3); WBC/HPF None Seen HPF (0-3)
[2021-05-04 16:00] LABS: Anion Gap 14 mmol/L (10-20); BUN (Urea Nitrogen) 10 mg/dL (8.9-20.6); Calc. Creatinine Clearance 0 mL/min (70-130); Calcium 10.4 mg/dL (7.8-10.44); Carbon Dioxide 28 mmol/L (22-29); Chloride 102 mmol/L (98-107); Glucose 81 mg/dL (70-105); Potassium 4.6 mmol/L (3.5-5.1); Sodium 139 mmol/L (136-145)
[2021-05-05 15:51] LABS: SARS-CoV-2 PCR by NAA Not Detected (NotDetected)
[2021-05-06 11:09] VITALS: BMI 37.1
[2021-05-09] MEDS ORDERED: Tranexamic Acid 1,000 MG/10 ML VIAL ONE ×2 (05:58→10:33)
[2021-05-09] MEDS ORDERED: Sodium Chloride 0.9% 100 ML ONE (05:58)
[2021-05-09] MEDS ORDERED: Vancomycin 1.5 GRAM/300 ML BAG 1.5 GM in Premix Bag 1 BAG IVPB SCH (06:00)
[2021-05-09] MEDS ORDERED: Bupivacaine PF 0.5% 30 ML VIAL ONE (06:32)
[2021-05-09] MEDS ORDERED: Fentanyl 100 MCG/2 ML VIAL ONE ×5 (06:32→14:09)
[2021-05-09] MEDS ORDERED: Midazolam HCl 2 mg/2 ml Vial ONE (06:32)
[2021-05-09] MEDS ORDERED: traMADol HCl 50 MG TAB PO PRN ×3 (07:30→08:30)
[2021-05-09] MEDS ORDERED: Fentanyl 100 MCG/2 ML VIAL SLOW IVP PRN (07:30)
[2021-05-09] MEDS ORDERED: HYDROcodone/Acetaminophen 10/325 mg Tablet PO PRN ×3 (07:30→08:30)
[2021-05-09] MEDS ORDERED: Acetaminophen 325 MG TAB PO PRN (07:30)
[2021-05-09] MEDS ORDERED: Tranexamic Acid 1,000 MG in Sodium Chloride 0.9% 100 ML IVPB SCH (07:30)
[2021-05-09] MEDS ORDERED: diphenhydrAMINE 25 MG CAP PO PRN (07:30)
[2021-05-09] MEDS ORDERED: Ondansetron PF 4 MG/2 ML Vial IVP PRN ×2 (07:30→08:30)
[2021-05-09] MEDS ORDERED: Zolpidem Tartrate 5 MG TAB PO PRN ×2 (07:30→08:30)
[2021-05-09] MEDS ORDERED: Promethazine HCl 25 MG/ML VIAL IM PRN ×3 (07:30→10:13)
[2021-05-09] MEDS ORDERED: Ropivacaine 2% HCl/PF (20 MG/10 ML VIAL) ONE (07:32)
[2021-05-09] MEDS ORDERED: Ondansetron PF 4 MG/2 ML Vial ONE (07:32)
[2021-05-09] MEDS ORDERED: PROPOFOL 200 MG/20 ML VIAL ONE (07:32)
[2021-05-09] MEDS ORDERED: Lidocaine 1% PF 5 ML VIAL ONE (07:32)
[2021-05-09] MEDS ORDERED: Bupivacaine HCl 0.5%/Epinephrine 1:200,000/PF 30 ml Vial ONE (07:32)
[2021-05-09] MEDS ORDERED: Fentanyl 100 MCG/2 ML VIAL IV PRN (08:26)
[2021-05-09] MEDS ORDERED: Ropivacaine HCl/PF 250 ML in Premix Bag 1 BAG NERVE BLCK SCH (08:30)
[2021-05-09] MEDS ORDERED: Promethazine HCl 25 MG/ML VIAL IVPB PRN (10:13)
[2021-05-09] MEDS ORDERED: Meperidine HCl/PF 25 MG/ML VIAL SLOW IVP PRN (10:13)
[2021-05-09] MEDS ORDERED: HYDROmorphone 2 MG/ML VIAL SLOW IVP PRN (10:13)
[2021-05-09] MEDS ORDERED: Ondansetron HCl/PF 4 MG/2 ML Vial IVP PRN (10:13)
[2021-05-09] MEDS ORDERED: Meperidine HCl/PF 25 MG/ML VIAL ONE (10:15)
[2021-05-09] MEDS ORDERED: HYDROmorphone 2 MG/ML VIAL ONE (10:17)
[2021-05-09] MEDS: Aspirin 81 mg Enteric Coated Tablet PO SCH ×2 (15:37→21:52)
[2021-05-09] MEDS: Sodium Chloride 0.9% 1,000 ML IV SCH ×2 (15:37→19:37)
[2021-05-09] MEDS: Multivitamin W/ Minerals 1 TAB PO SCH (15:38)
[2021-05-09] MEDS: Ferrous Gluconate 324 MG TAB PO SCH ×2 (15:38→21:52)
[2021-05-09] MEDS: Senokot S 8.6-50 MG TAB PO SCH ×2 (15:38→21:52)
[2021-05-09] MEDS: CEFAZOLIN 2 GM in Premix Bag 1 BAG IVPB SCH (15:49)
[2021-05-09] MEDS: Ketorolac Tromethamine 30 MG/ML VIAL IVP SCH ×2 (15:50→22:25)
[2021-05-09] MEDS ORDERED: Vancomycin HCl 1.5 GM in Sodium Chloride 0.9% 250 ML 300 ML IVPB SCH (18:00)
[2021-05-09] MEDS: HYDROcodone/Acetaminophen 10/325 mg Tablet PO PRN (19:28)
[2021-05-10] MEDS: CEFAZOLIN 2 GM in Premix Bag 1 BAG IVPB SCH (00:44)
[2021-05-10] MEDS: Sodium Chloride 0.9% 1,000 ML IV SCH ×3 (03:55→22:25)
[2021-05-10] MEDS: HYDROcodone/Acetaminophen 10/325 mg Tablet PO PRN (05:02)
[2021-05-10] MEDS: Ketorolac Tromethamine 30 MG/ML VIAL IVP SCH ×3 (05:02→22:26)
[2021-05-10 05:38] LABS: #Eosinphils 0.1 thou/uL (0.0-0.7); #Lymphocytes 2.1 thou/uL (1.20-3.40); #Monocytes 1.2 thou/uL (0.11-0.59); #Neutrophils 9.6 thou/uL (1.40-6.50); %Basophils 0.1 % (0.0-1.0); %Eosinophils 0.4 % (0.0-10.0); %Lymphocytes 16.5 % (21.0-51.0); %Monocytes 9.1 % (0.0-10.0); %Neutrophils 73.9 % (42.0-75.0); Hemoglobin 13.8 g/dL (14.0-18.0); Mean Corpuscular HGB CONC 32.9 g/dL (32.0-36.0); Mean Corpuscular Hemoglobin 28.6 pg (27.0-31.0); Mean Platelet Volume 9.6 fL (7.4-10.4); Platelet Count 228 thou/uL (130-400); RBC Distribution Width 12.5 % (11.5-14.5); Red Blood Cell (RBC) Count 4.81 mill/uL (4.70-6.10)
[2021-05-10] MEDS: Ferrous Gluconate 324 MG TAB PO SCH ×2 (08:18→22:26)
[2021-05-10] MEDS: Aspirin 81 mg Enteric Coated Tablet PO SCH ×2 (08:18→22:26)
[2021-05-10] MEDS: Senokot S 8.6-50 MG TAB PO SCH ×2 (08:18→22:26)
[2021-05-10] MEDS: Multivitamin W/ Minerals 1 TAB PO SCH (08:18)
[2021-05-10] MEDS ORDERED: Promethazine HCl 25 MG/ML VIAL IM PRN ×2 (20:38→21:54)
[2021-05-10] MEDS ORDERED: diphenhydrAMINE 25 MG CAP PO PRN ×2 (20:38→21:54)
[2021-05-10] MEDS ORDERED: diphenhydrAMINE 50 MG/ML VIAL IM PRN ×2 (20:38→21:54)
[2021-05-10] MEDS ORDERED: Zolpidem Tartrate 5 MG TAB PO PRN ×2 (20:38→21:54)
[2021-05-10] MEDS ORDERED: Naloxone HCl 0.4 mg/ml Vial IV PRN ×2 (20:38→21:54)
[2021-05-10] MEDS ORDERED: diphenhydrAMINE 50 MG/ML VIAL IVP PRN ×2 (20:38→21:54)
[2021-05-10] MEDS ORDERED: Ondansetron PF 4 MG/2 ML Vial IVP PRN ×2 (20:38→21:54)
[2021-05-10] MEDS ORDERED: Communication Order-Pharmacy FS SCH ×2 (20:45→22:00)
[2021-05-10] MEDS: fentaNYL Citrate/PF 2,000 MCG in Sodium Chloride 0.9% 60 ML IV PRN ×2 (21:39→22:19)
[2021-05-10] MEDS ORDERED: fentaNYL Citrate/PF 2,000 MCG in Sodium Chloride 0.9% 60 ML IV PRN ×2 (21:54→21:56)
[2021-05-11] MEDS: Ketorolac Tromethamine 30 MG/ML VIAL IVP SCH ×2 (05:29→12:36)
[2021-05-11 05:48] LABS: Hemoglobin 13.4 g/dL (14.0-18.0); Mean Corpuscular Hemoglobin 28.6 pg (27.0-31.0); Mean Corpuscular Volume 86.9 fL (78.0-98.0); Mean Platelet Volume 9.4 fL (7.4-10.4); Platelet Count 226 thou/uL (130-400); RBC Distribution Width 12.3 % (11.5-14.5); White Blood Cell (WBC) Count 16.3 thou/uL (4.8-10.8)
[2021-05-11] MEDS: Multivitamin W/ Minerals 1 TAB PO SCH (09:09)
[2021-05-11] MEDS: Aspirin 81 mg Enteric Coated Tablet PO SCH (09:09)
[2021-05-11] MEDS: Senokot S 8.6-50 MG TAB PO SCH (09:09)
[2021-05-11] MEDS: Ferrous Gluconate 324 MG TAB PO SCH (09:09)
[2021-05-11] MEDS: Sodium Chloride 0.9% 1,000 ML IV SCH (09:10)
[2021-05-11] MEDS ORDERED: HYDROcodone/Acetaminophen 10/325 mg Tablet PO PRN ×2 (11:36)
[2021-05-11 11:49] VITALS: TEMP 99
[2021-05-11 16:46] VITALS: BP 126/74
== END 2021-05-11 16:30 | disposition home or self-care (01) ==
LOC: SDC 05:30 → EDSTATUS 14:30 → SURG A 15:37 → UNDOADMIN 15:37 → SDC 05-11 16:30
PROVIDERS: ATTEND Orthopaedic Surgery
PROC: 0SRC0J9 Replacement of Right Knee Joint with Synthetic Substitute, Cemented, Open Approach (ICD-10-PCS; principal; 2021-05-09)
PROC: 8E0YXBZ Computer Assisted Procedure of Lower Extremity (ICD-10-PCS; principal; 2021-05-09)
DX: M17.31 Unilateral post-traumatic osteoarthritis, right knee (principal); S83.104S Unspecified dislocation of right knee, sequela; E66.9 Obesity, unspecified; D72.829 Elevated white blood cell count, unspecified; Z68.37 Body mass index [BMI] 37.0-37.9, adult; V89.2XXS Person injured in unspecified motor-vehicle accident, traffic, sequela
CPT/HCPCS: 36415; 80048; 81001; 85027; 85610; 86850; 86900; 86901; 87081; C1713; C1776; J0690; J1170; J1885; J2175; J2250; J2405; J2704; J2795; J3010; J3370; J3490; J7050; S0020; U0003; U0005